=== PATIENT | female | born 1990 | race Asian ===

== ENCOUNTER 2022-01-09 12:47 | Emergency (ER) | payer OTHER ==
[~2022-01-09] VITALS: Ht 172.7 cm; Wt 121.0 kg
[2022-01-09] MEDS ORDERED: DEXAMETHASONE 4MG/ML 1ML VIAL IV ONE (13:30)
[2022-01-09] MEDS ORDERED: KETOROLAC 30MG/ML VIAL IV STA (13:30)
[2022-01-09] MEDS ORDERED: SODIUM CHLORIDE 0.9% 1,000 ML IV ONE (13:30)
[2022-01-09 14:33] LABS: BASOPHILS % 0.4 % (0.0-2.0); EOSINOPHILS % 0.1 % (0.0-5.0); HEMATOCRIT. 38.8 % (36.0-48.0); HEMOGLOBIN. 12.9 g/dL (12.0-16.0); LYMPHOCYTES % 12.2 % (20.0-50.0); MEAN CORPUSCULAR HEMOGLOBIN 27.2 pg (28.0-32.0); MEAN CORPUSCULAR VOLUME 81.9 fL (81.0-99.0); MEAN PLATELET VOLUME 8.4 fl (7.4-10.4); MONOCYTES % 8.8 % (2.0-8.0); NEUTROPHILS % 78.5 % (40.0-76.0); PLATELET 242 x1000/uL (130-400); RED BLOOD CELL COUNT 4.74 mill/uL (4.2-5.4)
[2022-01-09 14:54] LABS: CHLORIDE 107 mEq/L (98-107)
[2022-01-09 17:30] VITALS: BP 133/85
== END 2022-01-09 17:40 | disposition home or self-care (01) ==
LOC: ER 12:47
DX: J02.0 Streptococcal pharyngitis (principal)
CPT/HCPCS: 36415; 80053; 85025; 93005; 96361; 96374; 96375; 99284; J1100; J1885; J7030